=== PATIENT | male | born 1955 | race Caucasian/White ===

== ENCOUNTER 2024-10-10 07:44 | Day surgery (SDC) | payer MEDICARE ==
[~2024-10-10] VITALS: Ht 175.3 cm; Wt 137.2 kg
[2024-10-10] VITALS (17 sets, daily range): BP systolic 76–153; BP diastolic 61–98
[~2024-10-10 07:44] MED LIST: ASPI81CH PO; Acetaminophen 500 MG Tab PO SCH; CeFAZolin Sodium 3,000 MG in NS 100 ML IV SCH; Chlorhexidine Mouth Care 15 ML UDC MT SCH; Lactated Ringer's 1,000 ML IV SCH; OxyCODONE HCL 10 MG TABCR PO SCH; ROSUVASTATIN CA10 MG PO; Ropivacaine 0.5% HCl/Pf 123.125 MG,EPINEPHrine HCL 0.25 MG,Ketorolac Tromethamine 15 MG... INFIL SCH; Tranexamic Acid 100 ML IV SCH
--- NOTE | 2024-10-10 08:41 | NUR ---
History, Chart, Medications and Allergies reviewed before start of procedure. Pre-Op teaching done. Pt verbalizes understanding. Patient confirms NPO status and agrees with scheduled surgery. PT AT BS IS TAKING ALL BELONGINGS.
[2024-10-10] MEDS ORDERED: Midazolam HCl 1MG / ML 2ML Vial ONE (09:01)
[2024-10-10] MEDS ORDERED: FentaNYL Citrate 50 MCG/ML 2 ML Injection ONE ×2 (09:01→10:41)
[2024-10-10] MEDS ORDERED: Metoclopramide HCl 5MG / ML 2ML Vial IV PRN (09:45)
[2024-10-10] MEDS ORDERED: OxyCODONE HCL 5 MG TAB PO PRN ×2 (09:45)
[2024-10-10] MEDS ORDERED: Ondansetron HCl 2 MG / ML 2ML Vial IV PRN (09:45)
[2024-10-10] MEDS ORDERED: FLU VACC TS2024-25(6MOS UP)/PF 45 MCG/0.5 ML SYRINGE IM SCH (09:45)
[2024-10-10] MEDS ORDERED: Magnesium Hydroxide Conc 10 ML UDC PO PRN (09:45)
[2024-10-10] MEDS ORDERED: Promethazine HCl 25 MG Tab PO PRN (09:45)
[2024-10-10] MEDS ORDERED: DiphenhydrAMINE HCL 25 MG Cap PO PRN (09:50)
[2024-10-10] MEDS ORDERED: HYDROmorphone HCl/Pf 1MG SYR IV PRN (09:50)
[2024-10-10] MEDS ORDERED: Lactated Ringer's 1,000 ML IV SCH (09:50)
[2024-10-10] MEDS ORDERED: propofoL 50 ML IV ONE (09:52)
[2024-10-10] MEDS ORDERED: Bisacodyl 10 MG Supp PR PRN (09:55)
[2024-10-10] MEDS ORDERED: Dexamethasone Sod Phos 10 MG/ML 1ML VIAL ONE (10:30)
[2024-10-10] MEDS ORDERED: Ondansetron HCl 2 MG / ML 2ML Vial ONE (10:35)
[2024-10-10] MEDS ORDERED: Ketorolac Tromethamine 30mg Vial ONE ×2 (10:35→10:48)
[2024-10-10] MEDS ORDERED: Rocuronium Bromide 10 MG/ML 5ML Injection IV ONE ×2 (10:41)
[2024-10-10] MEDS ORDERED: HYDROmorphone HCl/Pf 1MG SYR ONE (10:49)
[2024-10-10] MEDS ORDERED: Esmolol HCL 10 MG/ML 10ML VIAL ONE (10:51)
[2024-10-10] MEDS ORDERED: propofoL 40 ML IV ONE (10:52)
[2024-10-10] MEDS ORDERED: Labetalol HCL 5 MG/ML 4ML Injection (Single Dose) ONE (10:54)
[2024-10-10] MEDS ORDERED: Ketamine HCl 100 MG / ML 5ML Vial ONE (10:58)
[2024-10-10] MEDS ORDERED: propofoL 20 ML IV ONE ×5 (11:11→11:54)
[2024-10-10] MEDS ORDERED: Phenylephrine HCl 100 MCG/ML-NS 10MLSYR (1MG/10ML) ONE (11:15)
[2024-10-10] MEDS ORDERED: Phenylephrine HCl 10mg/ml 1 ml Vial ONE (11:15)
[2024-10-10] MEDS ORDERED: Sugammadex Sodium 200 MG/2ML SDV (100 MG/ML) ONE ×2 (11:44→12:14)
[2024-10-10] MEDS ORDERED: Ketorolac Tromethamine 15mg Vial IV SCH (12:00)
--- NOTE | 2024-10-10 14:38 | NUR ---
PT ARRIVED TO RM 214 AT APPROXIMATELY 1315. PT ALERT/ORIENTED X4 BUT APPEARED DAZED/DROWYS. PT REPORT PAIN IS 8/10 TO L KNEE. PT SHIVERING, WARM BLANKETS PROVIDED.
[2024-10-10] MEDS ORDERED: ASPI81CH PO (15:17)
[2024-10-10] MEDS ORDERED: Acetaminophen 500 MG Tab PO SCH (16:00)
--- NOTE | 2024-10-10 17:55 | NUR ---
DISCHARGE PT MET ALL GOALS PRIOR TO DISCHARGE. HE WAS ABLE TO VOID, HE CLEARED THERAPY, HE TOLERATED PO, AND PAIN MANAGED. PT ON RA WITH SATURATIONS >90%. PT PROVIDED WITH CLEAN DRESSINGS AND WRITTEN AND VERBAL DISCHARGE INSTRUCTIONS BY MAN LOPES. PT ASSISTED OUT IN W/C BY LAURENCE LUIS.
[2024-10-10] MEDS ORDERED: CeFAZolin Sodium 3,000 MG in NS 100 ML IV SCH (18:30)
[2024-10-10] MEDS ORDERED: Docusate Sodium 100 MG Cap PO SCH (21:00)
[2024-10-11] MEDS ORDERED: Rosuvastatin Calcium 10 MG Tab PO SCH (09:00)
[2024-10-11] MEDS ORDERED: Aspirin 81 MG Chew PO SCH (09:00)
== END 2024-10-10 17:58 | disposition home or self-care (01) ==
LOC: ORSCMMR 07:44 → ORD 09:15 → ORSCMMR 09:15 → SURS 13:12 → ORSCMMR 17:58
PROVIDERS: Orthopaedic Surgery
PROC: 0SRD0JA Replacement of Left Knee Joint with Synthetic Substitute, Uncemented, Open Approach (ICD-10-PCS; principal; 2024-10-10 09:15)
DX: M17.12 Unilateral primary osteoarthritis, left knee (principal); E78.5 Hyperlipidemia, unspecified; Z85.828 Personal history of other malignant neoplasm of skin; Z79.899 Other long term (current) drug therapy; Z79.82 Long term (current) use of aspirin; E66.01 Morbid (severe) obesity due to excess calories; Z68.41 Body mass index [BMI] 40.0-44.9, adult
CPT/HCPCS: 73560-LT; 97110; 97116; 97161; 97530; A9270; C1713; C1776; J0171; J0690; J0735; J1100; J1171; J1885; J2250; J2371; J2405; J2704; J2795; J3010; J7120